=== PATIENT | female | born 1955 | race Caucasian/White ===

== ENCOUNTER 2016-12-08 20:17 | Emergency (ER) | payer BC ==
--- NOTE | 2016-12-08 21:06 | DIAGNOSTIC IMAGING REPORT ---
PROCEDURE: XR ANKLE 3 OR 4 VIEWS - RIGHT INDICATION: TRAUMA/INJURY TECHNIQUE: Four views. COMPARISON: None. FINDINGS: There is a minimally distracted transverse fracture the right distal fibula (lateral malleolus). Moderate soft tissue swelling. The rest of the osseous structures and joint spaces are normal. IMPRESSION: 1. Minimally distracted fracture of the right distal fibula (lateral malleolus). 2. Otherwise negative right ankle. 3. Findings discussed with Dr. Davie Joy.
--- NOTE | 2016-12-08 21:09 | ED ORDER SUMMARY ---
..... Patient: KIRSTEN TURCIOS OrderSheet [facility] VisitID: [id number] [place] [address] 61y, F Registration Date/Time: 12/08/2016 ORDER SHEET Weight: 60.7 kg (stated) Allergies: No Known Drug Allergy GENERAL ORDERS: Ankle 3 or 4V Right Urgent (20:32 12/08/2016 Citlaly Coburn verbal order read back to Leighton Randall) (20:41 RFay) Splint (LE) (Left) (three way) (Fiberglass) (20:55 12/08/2016 Leighton Randall) (Ack 21:13 HSoule) (21:17 HSoule) - (20:56 12/08/2016 Leighton Randall) (Cancelled: Other21:18 HSoule) Crutches (20:56 12/08/2016 Leighton Randall) (21:07 Leighton Randall) MEDICATION ORDERS: Percocet PO 5/325 mg (HIGH ALERT MEDICATION, NOW) (20:55 12/08/2016 Leighton Randall) (Ack 21:10 HSoule) (21:13 HSoule) - (20:56 12/08/2016 Leighton Randall) (Cancelled: Other21:13 HSoule) IV FLUIDS: ORDER SHEET NOTES: [Electronically signed by Mariusz Harkins R.N. (22:12/08/2016)] [Electronically signed by Davie Joy Dr. (11:25 12/11/2016)] [Electronically locked/signed by Mariusz Harkins R.N. (22:12/08/2016)]
--- NOTE | 2016-12-08 21:09 | ED CLINICAL REPORT ---
Clinical Report - Physicians/Mid Levels [facility] [address] [place] [address] 12/08/2016 20:19 [id number] Arrived- By private vehicle. Historian- patient. HISTORY OF PRESENT ILLNESS Chief Complaint: Injury to the right ankle. The injury happened today. Occurred at home. Fell down 1 stair while walking. Patient is experiencing moderate pain. Patient denies injury to the head or neck. No other injury. REVIEW OF SYSTEMS The patient complains of pain on weight bearing. She has had swelling. No weakness, numbness or suspected foreign body. All systems otherwise negative, except as recorded above. PAST HISTORY See nurses notes. Tetanus immunization status is up-to-date. Medications: Phenergan (Promethazine) Rectal, as needed (migraines). Maxalt Oral, as needed (migraines). Albuterol Inhalation 1 puff, daily as needed (for shortness of breath). Motrin Oral 200 mg, daily (takes with Tylenol for headaches). Ranitidine HCl Oral 150 mg, 2x a day. Theophylline Oral 300 mg, 2x a day. Tylenol Oral 500 mg, daily (takes with Motrin). Allergies: No Known Drug Allergy. SOCIAL HISTORY Never smoker. No alcohol use or drug use. Is a local resident. moving to [facility]. ADDITIONAL NOTES The nursing notes have been reviewed. PHYSICAL EXAM Vital Signs: 12/08/2016 20:26 BP: 125/79. HR: 87. RR: 16. O2 saturation: 98%. Temp: 97.8 F. Pain level now: 5/10. Blood pressure normal. Oxygen saturation normal. Appearance: Alert. Oriented X3. No acute distress. Head: Head atraumatic. Neck: Normal inspection. Neck supple. C-spine non-tender. CVS: Normal heart rate and rhythm. Heart sounds normal. Pulses normal. Respiratory: No respiratory distress. Breath sounds normal. Chest nontender. Abdomen: No visible injury. Soft and nontender. Bowel sounds normal. Back: Normal inspection. No tenderness. ROM normal. Skin: Skin intact. Skin warm and dry. Extremities: (Patient was swelling and tenderness to theright lateral malleolus. No crepitus. No bony other abnormalities. No other bony tenderness noted to the foot. capillary refill is less than 3 seconds in all toes. Intact dorsalis pedis and posterior tibialis pulseswhich are symmetrical to the contralateral unaffected side. Compartments are soft. Skin is intact. No overlying skin changes. Sensation grossly intact). Extremities otherwise negative. LABS, X-RAYS, AND EKG Rt Ankle X-ray: (PROCEDURE: XR ANKLE 3 OR 4 VIEWS - RIGHT INDICATION: TRAUMA/INJURY TECHNIQUE: Four views. COMPARISON: None. FINDINGS: There is a minimally distracted transverse fracture the right distal fibula (lateral malleolus). Moderate soft tissue swelling. The rest of the osseous structures and joint spaces are normal. IMPRESSION: 1. Minimally distracted fracture of the right distal fibula (lateral malleolus). 2. Otherwise negative right ankle.). Views: 3 view ankle series. Technique: good. The X-rays were independently viewed by me, interpreted by the radiologist and discussed with the radiologist. PROGRESS AND PROCEDURES Splint Application: Short leg splint applied to right lower leg. Splint applied by [facility] with direct supervision by me. Reassessed extremity following splint application. Neurovascular intact. Patient with her own pair of crutches. Course of Care: the patient is a 61-year-old female presenting for evaluation of right-sided ankle pain. X-rays ordered from triage. I have reviewed the film and noticed that there is a fracture located to the lateral malleolus of the right ankle. No signs of neurovascular compromise. Patient is resting in bed in no acute distress. Pain medication as been offered. Patient is currently declining offers of pain medication. Patient reports that she is moving to [facility] and does not know where she'll follow-up. The patient states that she will follow up however. Information forour orthopedic surgeon has been providedto the patient however again patient is not sure where she will be following up. I discussion with patient in regards to her diagnosis, workup, home care, follow-up, and return precautions. All questions answered. The patient was reevaluated after the splint was been placed. Splint care educated. Patient continues to be neurovascularly intact. no signs of acute compartment syndrome. Disposition: Discharged. Condition: good. CLINICAL IMPRESSION 12/08/2016 20:26 BP: 125/79. HR: 87. RR: 16. O2 saturation: 98%. Temp: 97.8 F. Pain level now: 5/10. Blood pressure normal. Oxygen saturation normal. Closed displaced and mildly angulated fracture of the lateral malleolus of the right fibula. INSTRUCTIONS Warnings: GENERAL WARNINGS: Return or contact your physician immediately if your condition worsens or changes unexpectedly, if not improving as expected, or if other problems arise. Specifically return if pain, vomiting, bleeding, breathing difficulty or fever. Your Current Medications: CONTINUE TAKING THE FOLLOWING MEDICATIONS: Albuterol Inhalation : 1 puff daily, prn, for shortness of breath. Maxalt Oral : prn, migraines. Motrin Oral : 200 mg daily, takes with Tylenol for headaches. Phenergan (Promethazine) Rectal : prn, migraines. Ranitidine HCl Oral : 150 mg 2x a day. Theophylline Oral : 300 mg 2x a day. Tylenol Oral : 500 mg daily, takes with Motrin. Prescription Medications: Percocet 5 mg/325 mg: take 1 tablet orally every 6 hours as needed for pain. Dispense twenty (20). No refill. Substitution is permissible. Follow-up: Return to the emergency department in three days. Follow up with your doctor in three days. Reason for referral: recheck today's concerns. Summary of care provided to patient and family via paper. Screening today revealed the patient's blood pressure to be in the normal range. The patient should follow up with a primary care provider for blood pressure management. Understanding of the discharge instructions verbalized by patient. Follow-up with: [facility], , [address] [facility], [id number] (Electronically signed by Davie Joy Dr. 12/11/2016 11:25)
--- NOTE | 2016-12-08 21:09 | ED CLINICAL REPORT ---
Clinical Report - Physicians/Mid Levels [facility] [address] [place] [address] 12/08/2016 20:19 [id number] Ar[facility]- By private vehicle. Historian- patient. HISTORY OF PRESENT ILLNESS Chief Complaint: Injury to the right ankle. The injury happened today. Occurred at home. Fell down 1 stair while walking. Patient is experiencing moderate pain. Patient denies injury to the head or neck. No other injury. REVIEW OF SYSTEMS The patient complains of pain on weight bearing. She has had swelling. No weakness, numbness or suspected foreign body. All systems otherwise negative, except as recorded above. PAST HISTORY See nurses notes. Tetanus immunization status is up-to-date. Medications: Phenergan (Promethazine) Rectal, as needed (migraines). Maxalt Oral, as needed (migraines). Albuterol Inhalation 1 puff, daily as needed (for shortness of breath). Motrin Oral 200 mg, daily (takes with Tylenol for headaches). Ranitidine HCl Oral 150 mg, 2x a day. Theophylline Oral 300 mg, 2x a day. Tylenol Oral 500 mg, daily (takes with Motrin). Allergies: No Known Drug Allergy. SOCIAL HISTORY Never smoker. No alcohol use or drug use. Is a local resident. moving to [facility]. ADDITIONAL NOTES The nursing notes have been reviewed. PHYSICAL EXAM Vital Signs: 12/08/2016 20:26 BP: 125/79. HR: 87. RR: 16. O2 saturation: 98%. Temp: 97.8 F. Pain level now: 5/10. Blood pressure normal. Oxygen saturation normal. Appearance: Alert. Oriented X3. No acute distress. Head: Head atraumatic. Neck: Normal inspection. Neck supple. C-spine non-tender. CVS: Normal heart rate and rhythm. Heart sounds normal. Pulses normal. Respiratory: No respiratory distress. Breath sounds normal. Chest nontender. Abdomen: No visible injury. Soft and nontender. Bowel sounds normal. Back: Normal inspection. No tenderness. ROM normal. Skin: Skin intact. Skin warm and dry. Extremities: (Patient was swelling and tenderness to theright lateral malleolus. No crepitus. No bony other abnormalities. No other bony tenderness noted to the foot. capillary refill is less than 3 seconds in all toes. Intact dorsalis pedis and posterior tibialis pulseswhich are symmetrical to the contralateral unaffected side. Compartments are soft. Skin is intact. No overlying skin changes. Sensation grossly intact). Extremities otherwise negative. LABS, X-RAYS, AND EKG Rt Ankle X-ray: (PROCEDURE: XR ANKLE 3 OR 4 VIEWS - RIGHT INDICATION: TRAUMA/INJURY TECHNIQUE: Four views. COMPARISON: None. FINDINGS: There is a minimally distracted transverse fracture the right distal fibula (lateral malleolus). Moderate soft tissue swelling. The rest of the osseous structures and joint spaces are normal. IMPRESSION: 1. Minimally distracted fracture of the right distal fibula (lateral malleolus). 2. Otherwise negative right ankle.). Views: 3 view ankle series. Technique: good. The X-rays were independently viewed by me, interpreted by the radiologist and discussed with the radiologist. PROGRESS AND PROCEDURES Splint Application: Short leg splint applied to right lower leg. Splint applied by [facility] with direct supervision by me. Reassessed extremity following splint application. Neurovascular intact. Patient with her own pair of crutches. Course of Care: the patient is a 61-year-old female presenting for evaluation of right-sided ankle pain. X-rays ordered from triage. I have reviewed the film and noticed that there is a fracture located to the lateral malleolus of the right ankle. No signs of neurovascular compromise. Patient is resting in bed in no acute distress. Pain medication as been offered. Patient is currently declining offers of pain medication. Patient reports that she is moving to [facility] and does not know where she'll follow-up. The patient states that she will follow up however. Information forour orthopedic surgeon has been providedto the patient however again patient is not sure where she will be following up. I discussion with patient in regards to her diagnosis, workup, home care, follow-up, and return precautions. All questions answered. The patient was reevaluated after the splint was been placed. Splint care educated. Patient continues to be neurovascularly intact. no signs of acute compartment syndrome. Disposition: Discharged. Condition: good. CLINICAL IMPRESSION 12/08/2016 20:26 BP: 125/79. HR: 87. RR: 16. O2 saturation: 98%. Temp: 97.8 F. Pain level now: 5/10. Blood pressure normal. Oxygen saturation normal. Closed displaced and mildly angulated fracture of the lateral malleolus of the right fibula. INSTRUCTIONS Warnings: GENERAL WARNINGS: Return or contact your physician immediately if your condition worsens or changes unexpectedly, if not improving as expected, or if other problems arise. Specifically return if pain, vomiting, bleeding, breathing difficulty or fever. Your Current Medications: CONTINUE TAKING THE FOLLOWING MEDICATIONS: Albuterol Inhalation : 1 puff daily, prn, for shortness of breath. Maxalt Oral : prn, migraines. Motrin Oral : 200 mg daily, takes with Tylenol for headaches. Phenergan (Promethazine) Rectal : prn, migraines. Ranitidine HCl Oral : 150 mg 2x a day. Theophylline Oral : 300 mg 2x a day. Tylenol Oral : 500 mg daily, takes with Motrin. Prescription Medications: Percocet 5 mg/325 mg: take 1 tablet orally every 6 hours as needed for pain. Dispense twenty (20). No refill. Substitution is permissible. Follow-up: Return to the emergency department in three days. Follow up with your doctor in three days. Reason for referral: recheck today's concerns. Summary of care provided to patient and family via paper. Screening today revealed the patient's blood pressure to be in the normal range. The patient should follow up with a primary care provider for blood pressure management. Understanding of the discharge instructions verbalized by patient. Follow-up with: [facility], , [address] [facility], [id number] (Electronically signed by Davie Joy Dr. 12/11/2016 11:25)
--- NOTE | 2016-12-08 21:09 | ED NURSING NOTES ---
Clinical Report - Nurses [facility] [address] [place] [address] 12/08/2016 20:19 [id number] TRI[facility] Triage time 20:26. Acuity: LEVEL 4. Chief Complaint: FALL DOWN 1 STAIR; tripped (Turned funny when on the stair and fell. States she heard a pop.). Alert. No acute distress. SEPSIS SCREEN: Sepsis Screen: negative. Negative (no infection suspected/documented). --20:31 Ananda Lopez R.N. 20:26 12/08/16. BP: 125/79 (regular adult cuff) taken on the left arm, via an automated monitor, while sitting. HR: 87 (normal rate). RR: 16 (regular, unlabored and normal). O2 saturation: 98% on room air. Temp: 97.8 F (oral). Pain level now: 5/10. --20:31 Ananda Lopez R.N. Weight: 60.7 kg stated. Height/Length: 64 inches Per Patient. BMI: 23. --20:26 Ananda Lopez R.N. Medications Albuterol Inhalation 1 puff, daily as needed (for shortness of breath). Motrin Oral 200 mg, daily (takes with Tylenol for headaches). Ranitidine HCl Oral 150 mg, 2x a day. Theophylline Oral 300 mg, 2x a day. Tylenol Oral 500 mg, daily (takes with Motrin). --20:29 Ananda Lopez R.N. Maxalt Oral, as needed (migraines). --20:29 Ananda Lopez R.N. Phenergan (Promethazine) Rectal, as needed (migraines). --20:29 Anadna Lopez R.N. Allergies No Known Drug Allergy. --20:29 Ananda Lopez R.N. Medication/allergy information source: the patient. --20:31 Ananda Lopez R.N. History Arrived by private vehicle. Historian: patient. Accompanied by family. Location of injuries: right ankle and right lateral ankle. This occurred just prior to arrival. Occurred at home. She has had trouble walking. No loss of consciousness. Treatment EDUCATIONAL MANAGER: Ice and took ibuprofen. (200 mg (mildly relieve)). PAST MEDICAL HX: Immunizations: up-to-date. SOCIAL HX: Never smoker. No alcohol use or drug use. She has not traveled outside the [place] The patient was not exposed to MRSA. No infectious disease exposure. ABUSE ASSESSMENT: Abuse assessment: The patient was asked "Do you feel safe in your home?" and "Has anyone hurt you or threatened to hurt you?". No report of abuse. SELF HARM ASSESSMENT: A self harm assessment was performed. The patient answered "no" to the question "Do you have thoughts of harming or killing yourself?" and "Have you recently had thoughts about harming or killing others?". FALL RISK ASSESSMENT: Fall risk assessment completed. No fall risk identified. NUTRITIONAL RISK ASSESSMENT: The nutritional risk assessment revealed no deficiencies. FUNCTIONAL ASSESSMENT: Functional assessment: no impairments noted. LEARNING NEEDS ASSESSMENT: The learning needs assessment revealed no barriers. SKIN INTEGRITY ASSESSMENT: Skin integrity risk assessment completed. No skin integrity risk identified. --20:31 Ananda Lopez R.N. PROBLEMS: Atrial Fibrillation. Paroxysmal atrial fibrillation. Tetanus Status. Fibula Fracture. Fall. Gastroesophageal Reflux. Migraine Headache. Asthma. --20:29 Ananda Lopez R.N. ADDITIONAL SURGERIES: Bladder Suspension. Knee Surgery. --20:29 Ananda Lopez R.N. Assessment GENERAL / NEURO / PSYCH: Alert. Oriented X 4. Appears in no acute distress. Patient appears calm and cooperative. ( Using crutches on arrival to the ED.). RESPIRATORY: Respirations not labored. SKIN: Skin is warm and dry. --20:31 Ananda Lopez R.N. Interventions ID band on patient. Cold pack applied to the right ankle. Right ankle elevated. To waiting room. --20:31 Ananda Lopez R.N. Report given to the primary nurse. FALLON Vee. --20:46 Ananda Lopez R.N. NURSING PROGRESS NOTES 21:13 12/08/2016 Percocet (Oxycodone-Acetaminophen) PO 5/325 mg Tablets 1 tab given. Allergies verified, confirmed 5 rights and sedative warning given to the patient and patient's family. --21:13 Martine Merrill Short leg and stirrup posterior fiberglass lower extremity splint applied to left ankle by paco. Distal pulses intact, sensation intact and motor within normal limits. --21:43 Israel Salinas. DISPOSITION / DISCHARGE Departure time: 21:48 Dec 08 2016. ( Splint applied at discharge first contact by this RN with pt cms intact distal to injury pt used crutches on discharge steady on her feet pt verbalized understanding of discharge instructions and follow up care). --21:48 Mariusz Harkins R.N. Discharge instructions provided and reviewed with the patient. Reviewed medication(s) information. Patient verbalized understanding. Written instructions provided in [place]. The patient was discharged by the physician. She was discharged home and accompanied by family. She left the Emergency Department on crutches and via private vehicle. Family member driving. --21:49 Mariusz Harkins R.N. 21:49 12/08/16. HR: 76. RR: 20. O2 saturation: 100%. --21:49 Mariusz Harkins R.N. Locked/Released at 12/08/2016 22:25 by Mariusz Harkins R.N.
--- NOTE | 2016-12-08 21:09 | ED ORDER SUMMARY ---
..... Patient: KIRSTEN TURCIOS OrderSheet [facility] VisitID: [id number] [place] [address] 61y, F Registration Date/Time: 12/08/2016 ORDER SHEET Weight: 60.7 kg (stated) Allergies: No Known Drug Allergy GENERAL ORDERS: Ankle 3 or 4V Right Urgent (20:32 12/08/2016 Citlaly Coburn verbal order read back to Leighton Randall) (20:41 RFay) Splint (LE) (Left) (three way) (Fiberglass) (20:55 12/08/2016 Leighton Randall) (Ack 21:13 HSoule) (21:17 HSoule) - (20:56 12/08/2016 Leighton Randall) (Cancelled: Other21:18 HSoule) Crutches (20:56 12/08/2016 Leighton Randall) (21:07 Leighton Randall) MEDICATION ORDERS: Percocet PO 5/325 mg (HIGH ALERT MEDICATION, NOW) (20:55 12/08/2016 Leighton Randall) (Ack 21:10 HSoule) (21:13 HSoule) - (20:56 12/08/2016 Leighton Randall) (Cancelled: Other21:13 HSoule) IV FLUIDS: ORDER SHEET NOTES: [Electronically signed by Mariusz Harkins R.N. (22:12/08/2016)] [Electronically signed by Davie Joy Dr. (11:25 12/11/2016)] [Electronically locked/signed by Mariusz Harkins R.N. (22:12/08/2016)]
--- NOTE | 2016-12-11 11:26 | ED MAR SUMMARY ---
..... Medication Administration Record [address] [place] [address] Patient: KIRSTEN TURCIOS Visit ID: [id number] 61y, F Weight: 60.7 kg Height/Length: 64 in BMI: 23 ALLERGIES: No Known Drug Allergy Given 21:13 12/08/2016 Martine Merrill, Medication Administered: PERCOCET [PO] (OXYCODONE-ACETAMINOPHEN), Dose: 1 tab 5/325 mg Tablets PO. Medication Ordered: Percocet PO 5/325 mg (HIGH ALERT MEDICATION, NOW).
--- NOTE | 2016-12-11 11:26 | ED MED RECONCILIATION SUMMARY ---
Patient: KIRSTEN TURCIOS Medication Reconciliation Report [facility] VisitID: [id number] [address] [place] [address] 61y, F Registration Date/Time: 12/08/2016 Weight: 60.7 kg Height/Length: 64 in. BMI: 23.0 ALLERGIES: No Known Drug Allergy The patient's Home Medications are listed below: CONTINUE TAKING THE FOLLOWING MEDICATIONS: Albuterol Inhalation 1 puff, daily, for shortness of breath Maxalt Oral, migraines Motrin Oral 200 mg, daily, takes with Tylenol for headaches Phenergan (Promethazine) Rectal, migraines Ranitidine HCl Oral 150 mg, 2x a day Theophylline Oral 300 mg, 2x a day Tylenol Oral 500 mg, daily, takes with Motrin The source(s) of the original Home Medication information: patient The following Medications were given to the patient in the Emergency Department: Percocet [PO] PO 1 tab, administered: 12/08/2016 9:13:00 PM The following Medications were prescribed to the patient: Percocet 5 mg/325 mg: take 1 tablet orally every 6 hours as needed for pain. Dispense twenty (20). No refill. Substitution is permissible. -- Davie Joy Dr.
--- NOTE | 2016-12-11 11:26 | ED DISCHARGE INSTRUCTIONS ---
Patient: KIRSTEN TURCIOS General Instructions [facility] VisitID: [id number] [address] [place] [place] [address] 61y, F Registration Date/Time: 12/08/2016 12/08/2016 20:26 BP: 125/79. HR: 87. RR: 16. O2 saturation: 98%. Temp: 97.8 F. Pain level now: 5/10. Blood pressure normal. Oxygen saturation normal. Closed displaced and mildly angulated fracture of the lateral malleolus of the right fibula. INSTRUCTIONS Warnings: GENERAL WARNINGS: Return or contact your physician immediately if your condition worsens or changes unexpectedly, if not improving as expected, or if other problems arise. Specifically return if pain, vomiting, bleeding, breathing difficulty or fever. Your Current Medications: CONTINUE TAKING THE FOLLOWING MEDICATIONS: Albuterol Inhalation : 1 puff daily, prn, for shortness of breath. Maxalt Oral : prn, migraines. Motrin Oral : 200 mg daily, takes with Tylenol for headaches. Phenergan (Promethazine) Rectal : prn, migraines. Ranitidine HCl Oral : 150 mg 2x a day. Theophylline Oral : 300 mg 2x a day. Tylenol Oral : 500 mg daily, takes with Motrin. Prescription Medications: Percocet 5 mg/325 mg: take 1 tablet orally every 6 hours as needed for pain. Dispense twenty (20). No refill. Substitution is permissible. Follow-up: Return to the emergency department in three days. Follow up with your doctor in three days. Reason for referral: recheck today's concerns. Summary of care provided to patient and family via paper. Screening today revealed the patient's blood pressure to be in the normal range. The patient should follow up with a primary care provider for blood pressure management. Understanding of the discharge instructions verbalized by patient. [facility] with: [facility] , [address], [place], [address] ADDITIONAL INFORMATION Fracture:Ankle You have a break (fracture) of the ankle. This causes local pain, swelling and sometimes bruising. A fracture is treated with a splint or cast or special boot. It will take about 4-6 weeks for the fracture to heal. Surgery may be needed to fix severe injuries. Home Care: You will be given a splint, cast or boot to prevent movement at the ankle joint. Unless you were told otherwise, use crutches or a walker and do not bear weight on the injured leg until cleared by your doctor to do so. (Crutches and walkers can be rented at many pharmacies and surgical/orthopedic supply stores). Do not put weight on a splint; it will break. Keep your leg elevated to reduce pain and swelling. When sleeping, place a pillow under the injured leg. When sitting, support the injured leg so it is level with your waist. This is very important during the first 48 hours. Apply an ice pack (ice cubes in a plastic bag, wrapped in a towel) over the injured area for 20 minutes every 1-2 hours the first day. You can place the ice pack directly over the splint/cast. Continue with ice packs 3-4 times a day for the next two days, then as needed for the relief of pain and swelling. Keep the cast/splint/boot completely dry at all times. Bathe with your cast/splint/boot out of the water, protected with a large plastic bag, rubber-banded at the top end. If a boot or fiberglass cast/splint gets wet, you can dry it with a hair-dryer. You may use acetaminophen (Tylenol) or ibuprofen (Motrin, Advil) to control pain, unless another pain medicine was prescribed. [ NOTE : If you have chronic liver or kidney disease or ever had a stomach ulcer or GI bleeding, talk with your doctor before using these medicines.] Follow Up with your doctor in one week, or as advised by our staff, to be sure the bone is healing properly. If you were given a splint, it may be changed to a cast at your follow-up visit. [NOTE: A radiologist will review any X-rays that were taken. We will notify you of any new findings that may affect your care.] Get Prompt Medical Attention If Any Of The Following Occur: The plaster cast or splint becomes wet or soft The fiberglass cast or splint remains wet for more than 24 hours Increased tightness or pain under the cast or splint Toes become swollen, cold, blue, numb or tingly Oxycodone Hydrochloride, Acetaminophen Oral tablet What is this medicine? ACETAMINOPHEN; OXYCODONE (a set a LIBRA digna fen; ox i KOE done) is a pain reliever. It is used to treat mild to moderate pain. How should I use this medicine? Take this medicine by mouth with a full glass of water. Follow the directions on the prescription label. Take your medicine at regular intervals. Do not take your medicine more often than directed. Talk to your cash checker regarding the use of this medicine in children. Special care may be needed. Patients over 65 years old may have a stronger reaction and need a smaller dose. What side effects may I notice from receiving this medicine? Side effects that you should report to your doctor or health lawn care worker as soon as possible: allergic reactions like skin rash, itching or hives, swelling of the face, lips, or tongue breathing difficulties, wheezing confusion light headedness or fainting spells severe stomach pain yellowing of the skin or the whites of the eyes Side effects that usually do not require medical attention (report to your doctor or health lawn care worker if they continue or are bothersome): dizziness drowsiness nausea vomiting What may interact with this medicine? alcohol antihistamines barbiturates like amobarbital, butalbital, butabarbital, methohexital, pentobarbital, phenobarbital, thiopental, and secobarbital benztropine drugs for bladder problems like solifenacin, trospium, oxybutynin, tolterodine, hyoscyamine, and methscopolamine drugs for breathing problems like ipratropium and tiotropium drugs for certain stomach or intestine problems like propantheline, homatropine methylbromide, glycopyrrolate, atropine, belladonna, and dicyclomine general anesthetics like etomidate, ketamine, nitrous oxide, propofol, desflurane, enflurane, halothane, isoflurane, and sevoflurane medicines for depression, anxiety, or psychotic disturbances medicines for sleep muscle relaxants naltrexone narcotic medicines (opiates) for pain phenothiazines like perphenazine, thioridazine, chlorpromazine, mesoridazine, fluphenazine, prochlorperazine, promazine, and trifluoperazine scopolamine tramadol trihexyphenidyl What if I miss a dose? If you miss a dose, take it as soon as you can. If it is almost time for your next dose, take only that dose. Do not take double or extra doses. Where should I keep my medicine? Keep out of the reach of children. This medicine can be abused. Keep your medicine in a safe place to protect it from theft. Do not share this medicine with anyone. Selling or giving away this medicine is dangerous and against the law. Store at room temperature between 20 and 25 degrees C (68 and 77 degrees F). Keep container tightly closed. Protect from light. This medicine may cause accidental overdose and if it is taken by other adults, children, or pets. Flush any unused medicine down the toilet to reduce the chance of harm. Do not use the medicine after the expiration date. What should I tell my health care provider before I take this medicine? They need to know if you have any of these conditions: brain tumor Crohn's disease, inflammatory bowel disease, or ulcerative colitis drink more than 3 alcohol containing drinks per day drug abuse or addiction head injury heart or circulation problems kidney disease or problems going to the bathroom liver disease lung disease, asthma, or breathing problems an unusual or allergic reaction to acetaminophen, oxycodone, other opioid analgesics, other medicines, foods, dyes, or preservatives or trying to get breast-feeding What should I watch for while using this medicine? Tell your doctor or health lawn care worker if your pain does not go away, if it gets worse, or if you have new or a different type of pain. You may develop tolerance to the medicine. Tolerance means that you will need a higher dose of the medication for pain relief. Tolerance is normal and is expected if you take this medicine for a long time. Do not suddenly stop taking your medicine because you may develop a severe reaction. Your body becomes used to the medicine. This does NOT mean you are addicted. Addiction is a behavior related to getting and using a drug for a non-medical reason. If you have pain, you have a medical reason to take pain medicine. Your doctor will tell you how much medicine to take. If your doctor wants you to stop the medicine, the dose will be slowly lowered over time to avoid any side effects. You may get drowsy or dizzy. Do not drive, use machinery, or do anything that needs mental alertness until you know how this medicine affects you. Do not stand or sit up quickly, especially if you are an older patient. This reduces the risk of dizzy or fainting spells. Alcohol may interfere with the effect of this medicine. Avoid alcoholic drinks. There are different types of narcotic medicines (opiates) for pain. If you take more than one type at the same time, you may have more side effects. Give your health care provider a list of all medicines you use. Your doctor will tell you how much medicine to take. Do not take more medicine than directed. Call emergency for help if you have problems breathing. The medicine will cause constipation. Try to have a bowel movement at least every 2 to 3 days. If you do not have a bowel movement for 3 days, call your doctor or health lawn care worker. Do not take Tylenol (acetaminophen) or medicines that have acetaminophen with this medicine. Too much acetaminophen can be very dangerous. Many nonprescription medicines contain acetaminophen. Always read the labels carefully to avoid taking more acetaminophen. You have been given the following additional information: Fracture, Ankle (General) Oxycodone Hydrochloride, Acetaminophen Oral tablet (Electronically signed by Davie Joy Dr. 12/11/2016 11:25)
--- NOTE | 2016-12-11 11:26 | ED MAR SUMMARY ---
..... Medication Administration Record [facility] [address] [place] [address] Patient: KIRSTEN TURCIOS Visit ID: [id number] 61y, F Weight: 60.7 kg Height/Length: 64 in BMI: 23 ALLERGIES: No Known Drug Allergy Given 21:13 12/08/2016 Martine Merrill, Medication Administered: PERCOCET [PO] (OXYCODONE-ACETAMINOPHEN), Dose: 1 tab 5/325 mg Tablets PO. Medication Ordered: Percocet PO 5/325 mg (HIGH ALERT MEDICATION, NOW).
--- NOTE | 2016-12-11 11:26 | ED MED RECONCILIATION SUMMARY ---
Patient: KIRSTEN TURCIOS Medication Reconciliation Report [facility] VisitID: [id number] [address] [place] [address] 61y, F Registration Date/Time: 12/08/2016 Weight: 60.7 kg Height/Length: 64 in. BMI: 23.0 ALLERGIES: No Known Drug Allergy The patient's Home Medications are listed below: CONTINUE TAKING THE FOLLOWING MEDICATIONS: Albuterol Inhalation 1 puff, daily, for shortness of breath Maxalt Oral, migraines Motrin Oral 200 mg, daily, takes with Tylenol for headaches Phenergan (Promethazine) Rectal, migraines Ranitidine HCl Oral 150 mg, 2x a day Theophylline Oral 300 mg, 2x a day Tylenol Oral 500 mg, daily, takes with Motrin The source(s) of the original Home Medication information: patient The following Medications were given to the patient in the Emergency Department: Percocet [PO] PO 1 tab, administered: 12/08/2016 9:13:00 PM The following Medications were prescribed to the patient: Percocet 5 mg/325 mg: take 1 tablet orally every 6 hours as needed for pain. Dispense twenty (20). No refill. Substitution is permissible. -- Davie Joy Dr.
== END 2016-12-08 21:44 | disposition home or self-care (01) ==
LOC: ED SRH 20:17
DX: S82.61XA Displaced fracture of lateral malleolus of right fibula, initial encounter for closed fracture (principal); W10.9XXA Fall (on) (from) unspecified stairs and steps, initial encounter; Y93.01 Activity, walking, marching and hiking; Y92.009 Unspecified place in unspecified non-institutional (private) residence as the place of occurrence of the external cause; Y99.9 Unspecified external cause status